=== PATIENT | male | born 1985 | race Caucasian/White ===

== ENCOUNTER 2020-05-11 07:32 | Emergency (ER) | payer OTHER ==
[2020-05-11 07:46] VITALS: BMI 24.1
--- NOTE | 2020-05-11 08:16 | PDOC ---
History of Present Illness - General Chief Complaint: Rectal Bleed Stated Complaint: PAIN Time Seen by Provider: 05/11/20 08:15 History Source: Patient - History of Present Illness Initial Comments: 05/11/20 08:15 34F w/hx HIV, epilepsy, asthma, depression p/w 4 days of BRBPR, bilateral leg pain and weakness. He reports that 4 days ago he needed assistance getting out of bed due to both pain and weakness in the bilateral legs. He reports that since then he had leakage of stool, denies urinary incontinence. He reports being unable to ambulate secondary to both pain and weakness in the bilateral lower extremities. He denies any fevers, chills, confusion, nausea, or vomiting. He reports abdominal bloating. Past History - Medical History Allergies/Adverse Reactions: Allergies Allergy/AdvReac Type Severity Reaction Status Date / Time Shellfish Allergy Intermediate Verified 05/11/20 07:43 latex Allergy Mild Hives Verified 05/11/20 07:43 shellfish derived Allergy Mild Verified 05/11/20 07:43 diphenhydramine HCl Allergy Verified 05/11/20 07:43 [From Benadryl] haloperidol [From Haldol] Allergy Verified 05/11/20 07:43 haloperidol lactate Allergy Verified 05/11/20 07:43 [From Haldol] iodine Allergy Verified 05/11/20 07:43 lorazepam [From Ativan] Allergy Verified 05/11/20 07:43 Penicillins Allergy Verified 05/11/20 07:43 sea food Allergy Uncoded 05/11/20 07:43 Home Medications: Ambulatory Orders Unobtainable 05/11/20 Anemia: No Asthma: Yes Cancer: No Cardiac Disorders: No CVA: No COPD: No CHF: No Dementia: No Diabetes: No GI Disorders: No Disorders: No HTN: No Hypercholesterolemia: No Liver Disease: No Psychiatric Problems: Yes (depression) Seizures: Yes (LAST ONE 3 YEARS AGO/NO MEDS) Thyroid Disease: Yes - Surgical History Abdominal Surgery: No Appendectomy: Yes (removed when young) Cardiac Surgery: No Cholecystectomy: No Lung Surgery: No Neurologic Surgery: No Orthopedic Surgery: No - Immunization History Td Vaccination: No TDAP Vaccination: Yes Immunization Up to Date: No (no flu vaccine) - Psycho-Social/Smoking History Smoking Status: Yes Smoking History: Current every day smoker Years of Tobacco Use: 0 Have you smoked in the past 12 months: No Number of Cigarettes Smoked Daily: 5 Cigars Per Day: 0 Information on smoking cessation initiated: No 'Breaking Loose' booklet given: 01/23/15 - Substance Abuse Hx (Audit-C & DAST Scrn) How often the patient has a drink containing alcohol: Never Score: In Men: 4 or > Positive; In Women: 3 or > Positive: 0 Screen Result (Pos requires Nsg. Audit-10AR): Negative In the last yr the pt used illegal drug/Rx for NonMed reason: No Score: Yes response is considered Positive: 0 Screen Result (Positive result requires Nsg. DAST-10): Negative Review of Systems - Review of Systems Able to Perform ROS?: Yes Comments:: 05/11/20 10:05 GENERAL/CONSTITUTIONAL: Weakness. No fever or chills. HEAD, EYES, EARS, NOSE AND THROAT: No change in vision. No ear pain or discharge. No sore throat. CARDIOVASCULAR: No chest pain or shortness of breath RESPIRATORY: No cough, wheezing, or hemoptysis. GASTROINTESTINAL: Stool leakage. No nausea, vomiting, diarrhea or constipation. GENITOURINARY: No dysuria, frequency, or change in urination. MUSCULOSKELETAL: Lower extremity pain and weakness. No joint or muscle swelling. No neck or back pain. SKIN: No rash NEUROLOGIC: Normal rectal tone. No headache, vertigo, loss of consciousness, or change in sensation. ENDOCRINE: No increased thirst. No abnormal weight change HEMATOLOGIC/LYMPHATIC: No anemia, easy bleeding, or history of blood clots. ALLERGIC/IMMUNOLOGIC: No hives or skin allergy. *Physical Exam - Vital Signs Last Vital Signs Temp Pulse Resp BP Pulse Ox 98.4 F 73 20 100/56 L 100 05/11/20 07:44 05/11/20 07:44 05/11/20 07:44 05/11/20 07:44 05/11/20 07:44 - Physical Exam 05/11/20 10:06 GENERAL: Unkempt, foul smelling, surrounded by flies. Awake, alert, and fully oriented, in no acute distress HEAD: No signs of trauma, normocephalic, atraumatic EYES: PERRLA, EOMI, sclera anicteric, conjunctiva clear ENT: Auricles normal inspection, hearing grossly normal, nares patent, oropharynx clear without exudates. Moist mucosa NECK: Normal ROM, supple, no lymphadenopathy, JVD, or masses LUNGS: No distress, speaks full sentences, clear to auscultation bilaterally HEART: Regular rate and rhythm, normal S1 and S2, no murmurs, rubs or gallops, peripheral pulses normal and equal bilaterally. ABDOMEN: RUQ, LLQ tenderness. Soft, normoactive bowel sounds. No guarding, no rebound. No masses EXTREMITIES : Normal rectal tone. Brown stool. Skin graft margins to R inner thigh. 5/5 strength bilaterally. Normal sensation to soft touch. Normal inspection, Normal range of motion, no edema. No clubbing or cyanosis NEUROLOGICAL: Cranial nerves II through XII grossly intact. Normal speech, no focal sensorimotor deficits SKIN: Warm, Dry, normal turgor, no rashes or lesions noted Rectal: Underwear, groin covered in brown stool. Normal rectal tone, no bright red blood or melena. Medical Decision Making - Medical Decision Making 05/11/20 09:55 34M w/hx depression, HIV, asthma, epilepsy p/w 4 days of atraumatic bilateral LE weakness, pain, stool leakage as well as RUQ, LLQ abdominal pain. Normal rectal tone on exam, no gross blood per rectum. Ddx electrolyte derangement, di verticulosis, weakness secondary to anemia. Cauda equina unlikely with normal sensation, normal rectal tone. Plan: CBC CMP Lipase FOBT Ofirmev Maalox Pepcid 1L LR CXR Dispo: Pending labs Discharge - Discharge Information Problems reviewed: Yes Clinical Impression/Diagnosis: Leg pain, bilateral Condition: Stable Disposition: HOME - Admission No - Follow up/Referral - Patient Discharge Instructions Patient Printed Discharge Instructions: DI for Leg Pain Additional Instructions: You were seen in the ER for leg pain. Your MRI did not show any signs of compression of the spinal cord, or any fractures or injuries. Your physical exam was normal. Follow up with your primary care physician as soon as possible, in the next 2-3 days. Return to the ER if you develop high fevers, confusion, intractable nausea and vomiting. - Post Discharge Activity
[2020-05-11] MEDS ORDERED: FAMOTIDINE 20 MG/50 ML IVPB 20 MG/50 ML MG IVPB ONE ×2 (08:25→08:57)
[2020-05-11] MEDS ORDERED: MAG HYDROX/AL HYDROX/SIMETH 30 ML UNIT-DOSE CUP PO ONE (08:25)
[2020-05-11] MEDS ORDERED: ACETAMINOPHEN 1000 MG/100 ML VIAL (NON FORMULARY) IVPB ONE (08:25)
[2020-05-11] MEDS ORDERED: LACTATED RINGERS SOLUTION 1000 ML INFUS.BAG IV ONE (08:26)
[2020-05-11] MEDS ORDERED: MAG HYDROX/AL HYDROX/SIMETH 30 ML UNIT-DOSE CUP ONE (08:57)
[2020-05-11] MEDS ORDERED: ACETAMINOPHEN INJECTION 100 ML IVPB ONE (08:57)
[2020-05-11] MEDS ORDERED: ACETAMINOPHEN 325 MG TABLET (FP) PO ONE (10:22)
[2020-05-11] MEDS ORDERED: ACETAMINOPHEN 325 MG TABLET (FP) ONE (10:36)
--- NOTE | 2020-05-11 12:02 | PDOC ---
Attending Attestation - Resident Resident Name: Darin Marrero - ED Attending Attestation I have performed the following: I have examined & evaluated the patient, The case was reviewed & discussed with the resident, I agree w/resident's findings & plan, Exceptions are as noted - HPI HPI: 05/11/20 12:00 34 M with h/o HIV, epilepsy, asthma, depression, presenting with bloody stool x 4 days, accompanied by BLE pain and weakness. Pt states that he has had red blood in his stool. Denies any dark tarry stools. He also reports worsening pain in both legs. Denies any falls or trauma. No swelling. - Physicial Exam PE: 05/11/20 12:01 See resident exam - Medical Decision Making 05/11/20 12:01 34 M with BLE weakness and pain, as well as possible fecal incontinence. Pt has normal neuro exam with good rectal tone but was covered in his own feces upon arrival to ED. Will evaluate spinal cord with MRI. - Pt refusing all labwork and IV - MRI spine Pt signed out to Dr. Phillips at 4:30pm, pending MRI and re-evaluation Discharge - Discharge Information Problems reviewed: Yes Clinical Impression/Diagnosis: Leg pain, bilateral, Malingering, Weakness Condition: Stable Disposition: HOME - Follow up/Referral - Patient Discharge Instructions Patient Printed Discharge Instructions: DI for Leg Pain Additional Instructions: You were seen in the ER for leg pain. Your MRI did not show any signs of compression of the spinal cord, or any fractures or injuries. Your physical exam was normal. Follow up with your primary care physician as soon as possible, in the next 2-3 days. Return to the ER if you develop high fevers, confusion, intractable nausea and vomiting. - Post Discharge Activity
[2020-05-11 18:00] VITALS: TEMP 98.1
[2020-05-11 18:54] VITALS: BP 101/61; PULSE 65
== END 2020-05-11 18:40 | disposition home or self-care (01) ==
LOC: JER 07:32
DX: M79.604 Pain in right leg (principal); M79.605 Pain in left leg
CPT/HCPCS: 36415; 71045-TC-FY; 72146-TC; 72148-TC; 82272; 99285-25

== ENCOUNTER 2020-05-19 08:59 | Emergency (ER) | payer OTHER ==
[2020-05-19 09:22] VITALS: TEMP 99.9; BMI 24.4
--- OUTSIDE RECORDS SUMMARY | 2020-05-19 09:41 | XMS ---
:1985 Author Organization [facility] Care Team Providers Name Role Phone ED STAFF PHYSICIANNORA Unavailable Unavailable Victoriano Millan Unavailable [phone] DALTON ZAMBRANO Unavailable Unavailable ED STAFF PHYSICIAN, STAFF Unavailable Unavailable Conti, Saloman Unavailable [phone] Conti, Saloman Unavailable [phone] EMERGENCY SERVICE, X Unavailable Unavailable ED STAFF PHYSICIANSILVINO Unavailable Unavailable INDY HECTOR Unavailable Unavailable ZUNASSIGNED Unavailable Unavailable Ringstad, Giselle Unavailable Unavailable Ringstad, Giselle Unavailable Unavailable Ringstad, Giselle Unavailable Unavailable Ringstad, Giselle Unavailable Unavailable Ringstad, Giselle Unavailable Unavailable Ringstad, Giselle Unavailable Unavailable Ringstad, Giselle Unavailable Unavailable Ringstad, Giselle Unavailable Unavailable Ringstad, Giselle Unavailable Unavailable Ringstad, Giselle Unavailable Unavailable Ringstad, Giselle Unavailable Unavailable Conchita, Beatriz Unavailable Unavailable Conchita, Beatriz Unavailable Unavailable Conchita, Beatriz Unavailable Unavailable Conchita, Beatriz Unavailable Unavailable Re-disclosure Warning The records that you are about to access may contain information from federally- assisted alcohol or drug abuse programs. If such information is present, then the following federally mandated warning applies: This information has been disclosed to you from records protected by federal confidentiality rules (42 CFR part 2). The federal rules prohibit you from making any further disclosure of this information unless further disclosure is expressly permitted by the written consent of the person to whom it pertains or as otherwise permitted by 42 CFR part 2. A general authorization for the release of medical or other information is NOT sufficient for this purpose. The Federal rules restrict any use of the information to criminally investigate or prosecute any alcohol or drug abuse patient.The records that you are about to access may contain highly sensitive health information, the redisclosure of which is protected by Article 27-F of the [facility] law. If you continue you may haveaccess to information: Regarding HIV / AIDS; Provided by facilities licensed or operated by the [facility] Office of Mental Health; or Provided by the [facility] Office for People With Developmental Disabilities. If such information is present, then the following [facility] mandated warning applies: This information has been disclosed to you from confidential records which are protected by state law. State law prohibits you from making any further disclosure of this information without the specific written consent of the person to whom it pertains, or as otherwise permitted by law. Any unauthorized further disclosure in violation of state law may result in a fine or senior living sentence or both. A general authorization for the release of medical or other information is NOT sufficient authorization for further disclosure. Allergies and Adverse Reactions Type Description Substance Reaction Status Data Source(s) Drug allergy iodine Iodine Active [facility] Drug allergy latex Latex Active [facility]) propensity to Substance with Penicillins Active NEXTGE N adverse penicillin ([facility] to [facility] drug antibacterial Medical mechanism of Center) action (substance) Propensity to LORAZEPAM Lorazepam Anaphylaxis High Active [facility] adverse (qualifier Simran reactions to value) [facility] High Propensity to DIPHENHYDRAMINE Diphenhydramine Anaphylaxis Active Bon adverse HCL Hcl High (qualifier [facility] reactions to value) [facility] High Propensity to COCONUT Coconut Anaphylaxis High Active [facility] adverse reactions extract (qualifier Simran to drug value) [facility] High Propensity to HALOPERIDOL Haloperidol Anaphylaxis Active [facility] adverse LACTATE Lactate High (qualifier Simran reactions to value) [facility] High Propensity to IODINE Iodine Anaphylaxis High Active (qualifie r [facility] adverse reactions value) Simran Health to drug System Inc High Propensity to PENICILLINS Penicillins Anaphylaxis High Active [facility] adverse (qualifier Simran reactions to value) [facility] High Propensity to SHELLFISH Shellfish Anaphylaxis High Active [facility] adverse DERIVED Derived (qualifier Simran reactions to value) Health [facility] High Drug allergy latex latex Unknown [facility] Environmental latex latex Unknown [facility] on Drug allergy lorazepam lorazepam Swelling/Edema [facility] Corpor[facility] on Drug allergy No Known Drug No Known Drug [facility] yelena Allergies [facility] Corpor[facility] on Food allergy Shellfish Shellfish Unknown [facility] Drug allergy Ativan Ativan [facility] Food allergy ATIVAN ATIVAN Swelling/Edema [facility] Drug allergy Iodine Iodine [facility] Food allergy shellfish/ shellfish/ [facility] seafood seafood [facility] Food allergy Seafood Seafood Anaphylaxis [facility] Corpor[facility] on Food allergy anaphylaxis anaphylaxis [facility] on Food allergy Seafood Seafood [facility] Encounters Encounter Providers Location Date Indications Data Source(s ) Emergency Attender: [facility] ED H 05/19/2020 [facility] STAFF 06:31:00 AM Medical Fior cracamo PHYSICIANAttender: EDT - STAFF ED STAFF 05/19/2020 PHYSICIANAdmitter: 09:10:00 AM [facility] ED STAFF EDT PHYSICIANReferrer: ZUNASSIGNED Patient discharged. Outpatient Attender: DALTON Avalos 05/15/2020 [facility] Caitlyn EDMOND 10:05:00 AM EDT Medical JENNAAdmitter: DALTON HOFFMAN Psychiatric Attender: Victoriano [facility] 05/15/2020 [facility] 10:05:00 AM EDT - ([facility] (45+ 05/15/2020 [facility] Min) 10:05:00 AM EDT Medical Center) Emergency Attender: [facility] ED H 05/12/2020 [facility] STAFF 12:59:00 PM EDT - Medical PHYSICIANAttender: 05/12/2020 Center STAFF ED STAFF 06:35:00 PM EDT PHYSICIANAdmitter: SILVINO ED STAFF PHYSICIANReferrer: ZUNASSIGNED Patient discharged. Emergency Attender: NORA ED STAFF H 05/09/2020 08:01:00 AM [facility] PHYSICIANAttender: STAFF ED EDT - 05/09/2020 [facility] STAFF PHYSICIANAdmitter: 12:49:00 PM EDT [place] ED STAFF PHYSICIANReferrer: ZUNASSIGNED Patient discharged. Emergency Attender: SILVINO ED STAFF H 05/02/2020 06:24:00 PM [facility] PHYSICIANAttender: STAFF ED EDT - 05/02/2020 [facility] STAFF PHYSICIANAdmitter: SILVINO 09:57:00 PM EDT ED STAFF PHYSICIANReferrer: ZUNASSIGNED Patient discharged. Emergency Attender: EMERGENCY 09/29/2019 10:51:00 PAIN [facility] SERVICE, XAttender: PM EST Healt h INDY MasAdmitter: C INDY Soto PAIN Emergency 08/02/2018 01:43:45 PM EST - vomitin g [facility] 08/02/2018 04:54:00 PM EST vomiting OutpatientOFFICE/OUTPATIENT Attender: [facility] 10/21/2013 [facility] 02:39:00 PM EST ([facility] - 10/21/2013 [facility] 02:39:00 PM EST Medical [place]) Attender: [facility] 02/28/2013 [facility] 11:36:00 AM EDT ([facility] - 02/28/2013 [facility] 11:36:00 AM EDT Medical Center) Attender: [facility] 01/12/2012 [facility] Beatriz Conchita [facility] 05:15:00 PM EDT ([facility] - 01/12/2012 [facility] 05:15:00 PM EDT Medical Center) Attender: [facility] 12/17/2011 [facility] Giselle [facility] 06:43:00 PM EDT ([facility] - 12/17/2011 [facility] 06:43:00 PM EDT Medical Center) Attender: [facility] 11/09/2011 [facility] Madelin Conti [facility] 03:36:00 PM EDT ([facility] - 11/09/2011 [facility] 03:36:00 PM EDT Medical Center) Attender: [facility] 03/04/2011 [facility] 04:01:00 PM EDT ([facility] - 03/04/2011 [facility] 04:01:00 PM EDT Medical Center) Attender: [facility] 09/26/2010 [facility] Victoriano [facility] 01:34:00 PM EST ([facility] - 09/26/2010 [facility] 01:34:00 PM EST Medical Center) Attender: [facility] 06/14/2009 [facility] 02:54:00 PM EDT ([facility] - 06/14/2009 [facility] 02:54:00 PM EDT Medical Center) Att[facility]: [facility] 02:54:00 PM EDT ([facility] - 03/08/2009 [facility] 02:54:00 PM EDT Medical Center) Medications Medication Brand Start Product Dose Route Administrative [facility] Indications Reaction Description Data Name Date Form Instructions Instructions Source(s) Ibupro UNK complet Ibuprofen W estcheste 800mg-20 2012 MG ed (Motrin) r Count y 11:06: 800mg; Health 12 PM Twenty (20); Care EST Take one by Corporat io mouth every n 8 hours as needed for pain TOPAMAX UNK complet TOPAMAX Jose Carlos tcheste Oral 2012 MG ed Oral 25 r County 02:02: mg(s) Health 56 PM 1tab(s) - Care EST Instructions Corpora franky : PO, n at every bedtime - Duration: 7 day(s) 1 PO and BID7 day(s) 2 PO BID 14 day(s) - Dispense: quantity sufficient Sudafed UNK complet Sudafed We stcheste 30mg-20 2012 MG ed 30mg; Twenty r Co unty 06:45: (20); Take Health 38 AM one every Care EST six hours as Corpora franky needed for n congestion Percocet UNK complet Percocet [place] 5/325mg-12 2012 MG ed 5mg r County 06:32: (Oxycodone Health 37 AM 5mg/Acetamin Care EST ophen Corporatio 325mg); n Twelve (12); Take one every four to six hours as needed for pain; max 6 tabs/day; CAUTION: Causes sedation Kely Forbes MD Reglan UNK complet Reglan [place] 10mg-20 Q6 2012 MG ed 10mg; [facility] 06:32: (20); One by Healt h 37 AM mouth every Care EST six hours as Corpora franky needed for n nausea Kely Forbes MD Zofran UNK complet Zofran [place] 4mg-10 2012 MG ed 4mg; [facility] 11:43: (10); Take Health 16 AM one by mouth Care EST every eight Corporat io hours as n needed for nausea Zofran UNK complet Zofran [place] 4mg-10 2012 MG ed 4mg; [facility] 10:19: (10); Take Health 55 AM one by mouth Care EDT every eight Corporat io hours as n needed for nausea Debrox 6.5 CARBAM 02/28/ active use as N EXTGEN % Ear Drops ALESHA 2013 directed (Jonah nt PEROXI 12:00: Sw[place]na STARK 00 AM Medical EDT Center) Motrin 600 IBUPRO 11/08/ active take 1 N EXTGEN mg Tab FEN 2012 tablet (Saint 12:00: (600MG) by Giovanny whittington 00 AM oral route 3 Medica l EDT times every Center) day with food quetiapine Seroqu ORAL active quetiapi ne NEXTGEN 100 MG Oral el 100 2011 {tabl 100 MG Ora l (Saint Tablet mg Tab 12:00: et} Tablet [facility] [Seroquel] 00 AM [Seroquel] Sc dical Seroquel EDT Center) 100 mg Tab Hydrocortis hydroc 03/04/ active apply b y NEXTGEN one 10 ortiso 2010 topical (Saint MG/ML ne 1 % 12:00: route every Caitlyn sephs Topical Topica 00 AM day to the Med ical Cream l EDT affected Center) hydrocortis Cream area(s) one 1 % Topical Cream Albuterol ALBUTE 03/08/ active NEXT GEN Sulfate HFA ROL 2008 ([facility] 90 SULFAT 12:00: [place] mcg/Actuati E 00 AM Medical on Aerosol EDT Center) Inhaler Antiviral Antivi 999 oral complet Antiviral [place] ral MG ed r [facility] n Clindamycin Clinda 999 oral complet Clindamy claudio [place] mycin MG ed r [facility] n Naproxen naprox 1 complet [facility] 500 MG Oral en 500 ed Giovanny s Tablet mg Medical naproxen Tablet Center 500 mg , Tablet, Ordere Ordered By: d By: Doug Manuel MDDirection ch, s: 1 tablet MDDire oral twice ctions a day PRN : 1 pain tablet oral twice a day PRN pain Insurance Providers Payer name Policy type Policy ID Covered Covered democrat's Policy P trina / Coverage democrat ID relationship to [place] [employer] ormation type [place] M [id number] 01 [id number] W [id number] W [id number] 01 [id number] MEDICARE [id number] SP [id number] MEDICAID [id number] SP [id number] AFFINITY [id number] SP [id number] 100 SELF PAY/NO 0 Self 0 SLIDE SLIDING FEE [id number] Self [id number] 1 [place]ICAID [place] [id number] Self [id number] UNK [place] [id number] PART A AND B [place] [id number] [place] [employer]. [place] [id number] PART A AND B [place] [id number] [place] [employer] AFFINITY [id number] 1 HEALTH PLAN MEDICAID [facility] Managed Care [id number] MEDICAID Medicaid Problems, Conditions, and Diagnoses Code Display Name Description Problem Type Effective Data Sour ce(s) Dates F32.9 Major depressive MAJOR DEPRESSIVE Diagnosis 05/15/2020 int [facility] disorder, single DISORDER, SINGLE 10:05:00 AM M edical Center episode, unspecified EPISODE, EDT UNSPECIFIED G40.909 Epilepsy, EPILEPSY, UNSP, NOT Diagnosis 05/12/2020 [facility] [place] unspecified, not INTRACTABLE, 12:59:00 PM Medic al Center intractable, without WITHOUT STATUS EDT status epilepticus EPILEPTICUS I10 Essential (primary) ESSENTIAL (PRIMARY) Diagnosis 020 [facility] hypertension HYPERTENSION 12:59:00 PM Medical C enter EDT 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 05/12/2020 Surinder Barcenas disc degeneration, INTERVERTEBRAL DISC 12:59: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 Medical Center lumbar region DEGENERATION, EDT LUMBAR REGION M54.5 Low back pain LOW BACK PAIN Diagnosis 05/12/2020 [facility] 12:59:00 PM Medical Cente r EDT F25.1 Schizoaffective SCHIZOAFFECTIVE Diagnosis 05/02/2020 Surinder Barcenas disorder, depressive DISORDER, 06:24:00 PM Med ical Center type DEPRESSIVE TYPE EDT Z00.00 Encounter for ENCNTR FOR GENERAL Diagnosis 05/02/2020 Jonah Barcenas general adult ADULT MEDICAL EXAM 06:24:00 PM [facility] medical examination W/O ABNORMAL EDT without abnormal FINDINGS findings B20 Human HUMAN Diagnosis 09/29/2019 [place] immunodeficiency IMMUNODEFICIENCY 10:51:00 PM [employer] virus [HIV] disease VIRUS (HIV) DISEASE EST [facility] Z88.8 Allergy status to ALLERGY STATUS TO Diagnosis 09/29/2019 [place] other drugs, OTH DRUG/MEDS/BIOL 10:51:00 PM [facility] [employer] medicaments and SUBST STATUS EST [facility] [employer]Cell substances status Z91.040 Latex allergy status LATEX ALLERGY Diagnosis 09/29/2019 [facility] STATUS 10:51:00 PM [facility] iiyuma Z91.041 Radiographic dye RADIOGRAPHIC DYE Diagnosis 09/29/[address] [facility] allergy status ALLERGY STATUS 10:51:00 PM [facility] Z91.013 Allergy to seafood ALLERGY TO SEAFOOD Diagnosis 0 [place] 10:51:00 PM [facility] iiyuma Z88.0 Allergy status to ALLERGY STATUS TO Diagnosis 09/29/2019 [place] penicillin PENICILLIN 10:51:00 PM [facility] G40.909 Epilepsy, EPILEPSY, UNSP, NOT Diagnosis 09/29/2019 [facility] oneil unspecified, not INTRACTABLE, 10:51:00 PM [facility] intractable, without WITHOUT STATUS EST [facility] status epilepticus EPILEPTICUS Corpo ration 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 [address] [place] [address] other organs OTHER ORGANS 10:51:00 PM [facility] [employer] [facility] Z90.49 Acquired absence of ACQUIRED ABSENCE OF Diagnosis [address] [place], [place] [address]ter other specified OTHER SPECIFIED 10:51:00 PM [facility] parts of digestive PARTS OF DIGESTIVE EST Care tract TRACT [employer] Y99.8 Other external cause OTHER EXTERNAL Diagnosis 09/29/2019 [place] status CAUSE STATUS 10:51:00 PM [facility] EST Care [employer] Y92.89 Other specified OTH PLACES THE Diagnosis 09/29/2019 [facility] the [facility] PLACE OF OCCURRENCE 10:51:0 0 PM [facility] of occurrence of the OF THE EXTERNAL EST Care external cause CAUSE Corporatio n X58.XXXA Exposure to other EXPOSURE TO OTHER Diagnosis 09/29/2019 [place] specified factors, SPECIFIED FACTORS, 10:51:00 PM [facility] initial encounter INITIAL ENCOUNTER EST Care [employer] S61.214A Laceration without LACERATION W/O FB Diagnosis 09/29/2019 [place] foreign body of OF R RNG FNGR W/O 10:51:00 PM [facility] right ring finger DAMAGE TO NAIL, EST Ca re without damage to INIT Corpora tion nail, initial encounter M79.641 Pain in right hand PAIN IN RIGHT HAND Diagnosis 0 [place] 10:51:00 PM [facility] EST Care [employer]Wh[employer] K52.9 Noninfective Noninfective Diagnosis 08/02/2018 [facility] - gastroenteritis and gastroenteritis and 01:43:4 5 PM Community colitis, unspecified colitis, EST Hosp ital unspecified Diagnosis [facility] Diagnosis [facility] Diagnosis [facility] Diagnosis [facility]) Surgeries/Procedures Procedure Description Date Indications Data Source(s) Psychiatric Diagnostic 05/15/2020 ERUM EN ([facility] Interview (45+ Min) 12:00:00 AM EDT [facility] - 05/15/2020 Center) 12:00:[address] ABD PELV WO CT ABD PELV WO STAT 08/02/2018 018 [facility] CONT CONT 3:42 PM EST 08:42:42 PM [facility] [employer] System I nc URINALYSIS W/ RFLX URINALYSIS W/ STAT 08/02/201807/16 [facility] MICROSCOPIC RFLX MICROSCOPIC 2:02 PM EST 07:02:0 0 PM [facility] System I nc LIPASE LIPASE STAT 08/02/2018 08/02/2018 [facility] 2:01 PM EST 07:01:00 PM [facility] I nc METABOLIC PANEL, METABOLIC PANEL, STAT 08/02/2018 [facility] COMPREHENSIVE COMPREHENSIVE 2:01 PM EST 07:01:00 PM [facility] I nc CBC WITH AUTOMATED CBC WITH STAT 08/02/2018 8 [facility] DIFF AUTOMATED DIFF 2:01 PM EST 07:01:00 PM [facility] I nc OFFICE/OUTPATIENT VISIT, EST 10/21/2013 12:00:00 AM ES T - NEXTGEN ([facility] 10/21/2013 12:00:00 AM EST [facility]) Results ID Date Data Source [id number] 05/09/2020 09:20:00 AM EDT [facility] -0400 Name Value Range Interpretation Description Data Sup porting Code Source(s) Document(s ) Cannabinoids <content [facility] [Presence] in styleCode="[facility] Urine by Screen d">Cannabinoid Medical method >50 ng/mL [facility] </content>NEGA TIVE NG/ML (Reference Range: not available)<br/ > ID Date Data Source [id number] 12/19/2019 09:35:00 PM EDT [facility] Name Value Range Interpretation Code Description Data [place] rce(s) Supporting Document(s ) SARS-CoV-2 [facility] RNA Resp Ql KEVIN+probe This lab was ordered by Raymundo and marielos rted by [facility]. ID Date Data Source [id number] 10/22/2019 03:00:00 AM EDT [facility] Name Value Range Interpretation Code Description Data [place] rce(s) Supporting Document(s ) 2019-nCoV [facility] RNA XXX KEVIN+probe- Imp This lab was ordered by [facility] and reported by [facility] Health Lab. ID Date Data Source [id number] 10/22/2019 03:00:00 AM EDT [facility] Name Value Range Interpretation Code Description Data [place] rce(s) Supporting Document(s ) 2019-nCoV [facility] RNA XXX KEVIN+probe- Imp This lab was ordered by [facility] and reported by [facility] Public Health Lab. Procedure Social History Code Duration Value Status Description Data Source(s ) Smoking 05/19/2020 Daily Smoker completed Daily Smoker [facility] 07:56:00 AM Medical Cente r EDT Smoking 05/19/2020 Daily Smoker completed Daily Smoker [facility] 07:17:00 AM Medical Cente r EDT Smoking 05/19/2020 Daily Smoker completed Daily Smoker [facility] 06:53:00 AM Medical Cente r EDT Smoking 05/19/2020 Daily Smoker completed Daily Smoker [facility] 06:38:00 AM Medical Cente r EDT Caffeine Use 05/15/2020 completed NEXTGEN (Jonah nt Details 12:00:00 AM [facility]) 05/15/2020 Occasional completed Occasional NEXTGEN ([facility] 12:00:00 AM cigarette cigarette smoker [facility] smoker [facility]) Smoking 05/15/2020 Unknown if ever completed Unknown if ever NEXT GEN ([facility] 12:00:00 AM smoked smoked [facility]) Smoking 05/12/2020 Daily Smoker completed Daily Smoker [facility] 02:57:00 PM Medical Cente r EDT Smoking 05/12/2020 Daily Smoker completed Daily Smoker [facility] 01:10:00 PM Medical Cente r EDT Smoking 05/12/2020 Daily Smoker completed Daily Smoker [facility] 01:00:00 PM Medical Cente r EDT Smoking 05/09/2020 Daily Smoker completed Daily Smoker [facility] 08:09:00 AM Medical Cente r EDT Smoking 08/02/2018 Current every completed Current every [facility] 12:00:00 AM day smoker day [facility] Cigarettes 08/02/2018 UNK completed [facility] smoked current 12:00:00 AM Simran H ealth (pack per day) - EST System I nc Reported Alcohol Use completed NEXTGEN ([facility]) Smoking Unknown if ever completed Unknown if ever [facility] smoked smoked Medical Center Vital Signs ID Date Data Source UNK Name Value Range Interpretation Code Description Data Source(s) Body temperature 36.177964 36.513287 N[facility] Respiratory rate 16 /min 16 /min [facility] Oxygen saturation 97 % 97 % [facility] carmen in Arterial blood Medical Center by Pulse oximetry Heart rate 94 /min 94 /min [facility] Diastolic blood 86 mm[Hg] 86 mm[Hg] [facility] pressure Medical Center Systolic blood 147 mm[Hg] 147 mm[Hg] [facility] Medical Center Body temperature 36.819069 36.675673 [facility] Respiratory rate 18 /min 18 /min [facility] Oxygen saturation 98 % 98 % [facility] Arterial blood Medical Center by Pulse oximetry Heart rate 84 /min 84 /min [facility] Diastolic blood 65 mm[Hg] 65 mm[Hg] [facility] pressure Medical Center Systolic blood 118 mm[Hg] 118 mm[Hg] [facility] Body temperature 36.200362 36.488289 [facility] Respiratory rate 18 /min 18 /min [facility] Oxygen saturation 99 % 99 % [facility] in [facility] blood [facility] Center by Pulse oximetry Heart rate 74 /min 74 /min [facility] Diastolic blood 76 mm[Hg] 76 mm[Hg] [facility] pressure Medical Center Systolic blood 130 mm[Hg] 130 mm[Hg] [facility] Body weight 72.829328 kg 72.879741 kg [facility] Measured Medical Center Body temperature 36.905180 36.086515 [facility] Respiratory rate 18 /min 18 /min [facility] Oxygen saturation 100 % 100 % [facility] by Pulse oximetry Heart rate 74 /min 74 /min [facility] Body height 182.192384 182.582089 cm [facility] Center Diastolic blood 74 mm[Hg] 74 mm[Hg] [facility] pressure [facility] Center Systolic blood 128 mm[Hg] 128 mm[Hg] [facility] Body mass index 21.6 kg/m2 21.6 kg/m2 [facility] (BMI) [Ratio] Medical [facility] ter Body weight 92.516788 kg 92.275007 kg [facility] Measured [facility] Body temperature 36.238284 36.431621 [facility] Respiratory rate 18 /min 18 /min [facility] Oxygen saturation 98 % 98 % [facility] Ar[facility] by Pulse oximetry Heart rate 86 /min 86 /min [facility] Body height 188.934253 188.692612 cm [facility] Diastolic blood 82 mm[Hg] 82 mm[Hg] [facility] pressure [facility] Center Systolic blood 135 mm[Hg] 135 mm[Hg] [facility] Body mass index 26.0 kg/m2 26.0 kg/m2 [facility] (BMI) [Ratio] Medical [address] Systolic blood 105 mm[Hg] 105 mm[Hg] [place] [facility] Diastolic blood 60 mm[Hg] 60 mm[Hg] [facility] Heart rate 62 /min 62 /min [email or web address] Body temperature 36.78 Nela 36.78 Nela [facility] Respiratory rate 16 /min 16 /min [facility] [employer] [facility] Oxygen saturation 100 % 100 % [facility] Arterial blood [facility] by Pulse oxim[facility] Body height 182.9 cm 182.9 cm [email or web address] Body weight 90.719 kg 90.719 kg [facility] [email or web address] Body mass index 27.12 kg/m2 27.12 kg/m2 [facility] (BMI) [Ratio] [facility] Patient Treatment Plan of Care Planned Activity Planned Date Details Description Data Source (s) Debrox 6.5 % Ear Drops 02/28/2013 12:00:00 NEXTGEN ([facility]) Motrin 600 mg Tab 11/09/2011 12:00:00 NEX TGEN ([facility]) quetiapine 100 MG Oral 11/09/2011 12:00:00 NEXTGEN ([facility] Tablet [Seroquel] [facility] dical [place]) Hydrocortisone 10 MG/ML 03/04/2011 12:00:00 NEXTGEN ([facility] Topical Cream [facility]) Albuterol Sulfate HFA 90 03/08/2009 12:00:00 NEXTGEN ([facility] mcg/Actuation Aerosol [facility] In[facility]) Naproxen 500 MG Oral [facility]
--- NOTE | 2020-05-19 10:27 | PDOC ---
History of Present Illness - General Chief Complaint: Seizure Stated Complaint: SEIZURE Time Seen by Provider: 05/19/20 09:20 History Source: Patient Exam Limitations: No Limitations - History of Present Illness Initial Comments: 05/19/20 10:27 Conner Beverly is a 34F with PMH HIV, asthma, epilepsy (on Keppra and Dilantin), depression c/b self-harm and burn to right hand, known to ED for several visits for psychiatric and seizure-related issues, BIBA to ED for evaluation for seizure. Has not had PMD or neurology care in months, has been unable to take prescribed Keppra 500mg BID or Dilantin 100mg TID for the last month, or his HIV medications. Today had aura for seizure, JACKSON and photophobia, says he presented to [facility] ER for care, but was discharged home. Walked to [facility], left, and says he must have passed out, woke up ~[address] after so iling his clothes with feces and urine, called [facility] for evaluation and to be brought to [facility] ED. Denies recent illness, chest pain, SOB, fever, diarrhea, urinary sx. Denies post-ictal state normally, gets partial seizures, last seizure March 2019. Currently denies JACKSON, vision changes, weakness, lower back pain. Last visit to ED patient was highly uncooperative, covered in excrement without explanation, and received MRI for evaluation of cord compression as patient reported unable to walk, negative exam, able to walk out of ED. 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 Past History - Medical History Allergies/Adverse Reactions: Allergies Allergy/AdvReac Type Severity Reaction Status Date / Time Shellfish Allergy Intermediate Verified 05/19/20 09:34 latex Allergy Mild Hives Verified 05/19/20 09:34 shellfish derived Allergy Mild Verified 05/19/20 09:34 diphenhydramine HCl Allergy Verified 05/19/20 09:34 [From Benadryl] haloperidol [From Haldol] Allergy Verified 05/19/20 09:34 haloperidol lactate Allergy Verified 05/19/20 09:34 [From Haldol] iodine Allergy Verified 05/19/20 09:34 lorazepam [From Ativan] Allergy Verified 05/19/20 09:34 Penicillins Allergy Verified 10/04/20 09:34 sea food Allergy Uncoded 05/11/20 07:43 Home Medications: Ambulatory Orders Albuterol Sulfate 2 puff PO PRN 05/19/20 Dilantin - 100 mg PO TID 05/19/20 Fluticasone Propionate [Flovent Hfa] 44 mcg DAILY 05/19/20 Keppra 500 mg PO BID 05/19/20 Phenytoin Na Extended [Dilantin -] 100 mg PO TID #90 capsule 05/19/20 Triumeq 600-50-300 mg Tablet 05/19/20 levETIRAcetam [Keppra -] 500 mg PO BID #60 tablet 05/19/20 Anemia: No Asthma: Yes Cancer: No Cardiac Disorders: No CVA: No COPD: No CHF: No Dementia: No Diabetes: No GI Disorders: No Disorders: No HTN: No Hypercholesterolemia: No Liver Disease: No Psychiatric Problems: Yes (depression) Seizures: Yes (LAST ONE 3 YEARS AGO/NO MEDS) Thyroid Disease: Yes - Surgical History Abdominal Surgery: No Appendectomy: Yes (removed when young) Cardiac Surgery: No Cholecystectomy: No Lung Surgery: No Neurologic Surgery: No Orthopedic Surgery: No - Immunization History Td Vaccination: No TDAP Vaccination: Yes Immunization Up to Date: No (no flu vaccine) - Psycho-Social/Smoking History Smoking Status: Yes Smoking History: Current every day smoker Years of Tobacco Use: 0 Have you smoked in the past 12 months: No Number of Cigarettes Smoked Daily: 2 Cigars Per Day: 0 Information on smoking cessation initiated: No 'Breaking Loose' booklet given: 01/23/15 - Substance Abuse Hx (Audit-C & DAST Scrn) How often the patient has a drink containing alcohol: Monthly or less How often the patient has six or more drinks on one occasion: Never Score: In Men: 4 or > Positive; In Women: 3 or > Positive: 1 Screen Result (Pos requires Nsg. Audit-10AR): Negative Review of Systems - Review of Systems Able to Perform ROS?: Yes Constitutional: No: Symptoms Reported HEENTM: No: Symptoms Reported Respiratory: No: Symptoms reported Cardiac (ROS): No: Symptoms Reported ABD/GI: No: Symptoms Reported : No: Symptoms Reported Musculoskeletal: No: Symptoms Reported Integumentary: No: Symptoms Reported Neurological: Yes: Seizure. No: Headache, Numbness, Paresthesia, Weakness Endocrine: No: Symptoms Reported Hematologic/Lymphatic: No: Symptoms Reported All Other Systems: Reviewed and Negative *Physical Exam - Vital Signs Last Vital Signs Temp Pulse Resp BP Pulse Ox 99.9 F H 72 18 112/68 100 05/19/20 09:16 05/19/20 09:16 05/19/20 09:16 05/19/20 09:16 05/19/20 09:16 - Physical Exam General Appearance: Yes: Nourished, Appropriately Dressed, Disheveled, Other (clothes soaked in urine with flies aroud clothing, malodorous, resting in bed in NAD). No: Apparent Distress HEENT: positive: EOMI, AKILAH, Normal Voice, Symmetrical, Pharynx Normal, Hearing Grossly Normal. negative: Scleral Icterus (R), Scleral Icterus (L), Pharyngeal Erythema, Tonsillar Exudate, Tonsillar Erythema Neck: positive: Trachea midline, Normal Thyroid, Supple. negative: Tender, Rigid, Lymphadenopathy (R), Lymphadenopathy (L), Tender lateral, Tender midline Respiratory/Chest: positive: Lungs Clear, Normal Breath Sounds. negative: Chest Tender, Respiratory Distress, Accessory Muscle Use, Crackles, Rales, Rhonchi, Stridor, Wheezing Cardiovascular: positive: Regular Rhythm, Regular Rate. negative: Murmur Gastrointestinal/Abdominal: positive: Normal Bowel Sounds, Flat, Soft. negat mikal: Tender, Organomegaly, Pulsatile Mass, Guarding, Rebound, Tenderness Musculoskeletal: positive: Normal Inspection. negative: CVA Tenderness, Decreased Range of Motion, Vertebral Tenderness Extremity: positive: Normal Capillary Refill, Normal Inspection, Normal Range of Motion, Pelvis Stable. negative: Tender, Pedal Edema, Swelling, Calf Tenderness Integumentary: positive: Normal Color, Dry, Warm Neurologic: positive: automobile brakes bonder II-XII NML intact, Fully Oriented, Alert, Normal Mood/Affect, Normal Response, Motor Strength 5/5 (ROM limited by pain in legs but has 5/5 strength to hips and knees). negative: Sensory Deficit ED Treatment Course - LABORATORY CBC & Chemistry Diagram: 05/19/20 10:15 05/19/20 10:15 Medical Decision Making - Medical Decision Making 05/19/20 10:54 Patient presents with reported seizure, consistent with HPI no medications for a month, urinary incontinence, known epilepsy. No neurological deficits at this time, no JACKSON, A/Ox3, compliant with care. VSS, in NAD. Ordered CBC/CMP/lactic acid for eval true sz and levels for Keppra and phenytoin for further evaluation. Will load on medications as needed once results return. 05/19/20 10:57 Labs notable for: - CBC WNL - CMP WNL - LA WNL 05/19/20 13:21 Confirmed home medications: Keppra 500mg BID, Dilantin 100mg TID, and Trimeq for HAAART. Loading dose of Keppra 1000mg PO and Dilantin 400mg PO > 300mg PO > 300mg PO. Giving Keppra and 1st dose Dilantin now. 05/19/20 14:21 Dr. Erazo consulted regarding loading dose, recommends patient can be discharged home with 300mg PO medications spaced several hours apart. Given 400mg Dilantin and 1000mg Keppra here. No seizures in ED today. Will send Rx and discharge home with [facility] f/u for HIV care. 05/19/20 15:25 Discussed plan with patient who verbalizes understanding. Discharge - Discharge Information Problems reviewed: Yes Clinical Impression/Diagnosis: Seizure Condition: Stable - Additional Discharge Information Prescriptions: Phenytoin Na Extended [Dilantin -] 100 mg PO TID #90 capsule levETIRAcetam [Keppra -] 500 mg PO BID #60 tablet - Follow up/Referral Referrals: Harmeet Erazo MD [Staff Physician] - [facility] [place] [facility] [place] [Provider Group] [facility] Prov[facility] [Provider Group] - Patient Discharge Instructions Patient Printed Discharge Instructions: DI for Seizure Disorder -- Adult, DI for HIV Additional Instructions: Today you were evaluated for a seizure. We checked your blood and there were no problems. We are giving you doses of your Keppra and Dilantin, and will be sending you home with a supply of your seizure medications. To complete your loading dose of Dilantin, you need to take 300mg (3 tablets) of Dilantin in one hour, and another 300mg (3 tablets) later tonight at least 2 hours later. Tomorrow, please take 100mg Dilantin three times a day, and 500mg Keppra twice a day. We have given a supply for 30 days, but you need to follow-up with a regular doctor for further management. A referral to Dr. Erazo, a neurologist, has been given. A referral to the [facility] for HIV treatment, as well as neurology care and a primary care doctor, have been given. Follow-up with your doctors for more treatment. If you experience worsening seizures, pain, fevers, or other new or concerning symptoms, please return to the emergency room. - Post Discharge Activity
[2020-05-19 10:35] LABS: BASO % 0.4 % (0-2.0); EOS % 0.6 % (0-4.5); HEMATOCRIT 43.3 % (35.4-49); HEMOGLOBIN 14.4 GM/dL (11.7-16.9); LYMPH % 20.9 % (8-40); MCH 30.6 pg (25.7-33.7); MCHC 33.2 g/dl (32.0-35.9); MEAN CELL VOLUME 92.1 fl (80-96); MEAN PLT VOLUME 9.6 fl (7.5-11.1); MONO % 8.5 % (3.8-10.2); NEUT % 69.6 % (42.8-82.8); PLATELET COUNT 171 K/MM3 (134-434); RDW 13.2 % (11.9-15.9); WHITE BLOOD COUNT 4.4 K/mm3 (4.0-10.0)
[2020-05-19 10:56] LABS: ALBUMIN 3.9 g/dl (3.4-5.0); BILIRUBIN,TOTAL 0.7 mg/dL (0.2-1); BLOOD UREA NITROGEN 11.6 mg/dL (7-18); CALCIUM 10.6 mg/dL (8.5-10.1); CREATININE 0.9 mg/dL (0.55-1.3); TOT PROT 8.5 g/dl (6.4-8.2)
--- NOTE | 2020-05-19 11:22 | PDOC ---
Documentation entered by Salas Archuleta SCRIBE, acting as scribe for Edgardo Nash MD. Edgardo Nash MD: This documentation has been prepared by the sybilibe, Salas Archuleta SCRIBE, under my direction and personally reviewed by me in its entirety. I confirm that the documentation accurately reflects all work, treatment, procedures, and medical decision making performed by me. Attending Attestation - Resident Resident Name: TamieCharles - ED Attending Attestation I have performed the following: I have examined & evaluated the patient, The case was reviewed & discussed with the resident, I agree w/resident's findings & plan, Exceptions are as noted - HPI HPI: 05/19/20 09:56 The patient is a 34 year old male with a significant past medical history of HIV, asthma, epilepsy (on Keppra and Dilantin), cellulitis of the legs, and depression who presents to the emergency department for evaluation of a seizure this morning. The patient reports and presents with urinary and fecal incontinence after a syncopal episode this morning wtihou tongue biting. The patient notes going to [facility] this morning for leg pain, and then was discharged, felt a seizure aura. after he left, he recalls falling and then waking up a few minutes later after soiled himself. He reports calling EMS to bring him to the ED for evaluation. He reports not taking his medications for seizures or HIV for one month since he ran out of his meds (states he has not seen his doctors at [facility] due to prior not being able to get into the [place]). The patient denies chest/abdominal/back pain, cough, and shortness of breath. Denies fever, chills, nausea, or vomiting. Denies any other symptoms. Allergies: Iodine, shellfish, latex, Benadryl, ativan, penicillin, haldol Past surgical history: None reported Social history: He denies tobacco, alcohol and drug use PCP Dr. Butch Sorto - Physicial Exam PE: 05/19/20 09:41 GENERAL: The patient is awake, alert, and fully oriented, Nontoxic - in no acute distress, dischevelled apppearing, unkempt HEAD: Normocephalic, atraumatic. EYES: extraocular movements intact, sclera anicteric, conjunctiva clear. ENT: Normal voice, Moist mucous membranes. NECK: Normal range of motion, supple without lymphadenopathy, JVD, or masses. N ofocal midline tenderness LUNGS: Breath sounds equal, clear to auscultation bilaterally. No wheezes, no crackles, no rales. HEART: Regular rate and rhythm, normal S1 and S2 without murmur, rub or gallop. ABDOMEN: Soft, nontender, normoactive bowel sounds. No guarding, no rebound. No masses. EXTREMITIES: Normal range of motion, NEUROLOGICAL: No facial asymmetry, Normal speech, moving all 4 ext spontaneously and symmetrically . PSYCH: Normal mood, normal affect. SKIN: Warm, Dry, normal turgor, no rashes or lesions noted. - Medical Decision Making 05/19/20 11:20 hx of HIV, seizures presenting with unwintnesse dseizure associated with urinary and bowel incontinence in setting of not taking his meds over the past month neuro intact will obtain labs, keppra/dilantin level if low will load th epatient if labs unremarkable wihll have pt fu with his neurologist/hiv doctors 05/19/20 13:50 labs reviewed will load the pt with PD seizure meds will give him an RX for his meds and have close fu with his doctors Discharge - Discharge Information Problems reviewed: Yes Clinical Impression/Diagnosis: Seizure Condition: Stable Disposition: HOME - Additional Discharge Information Prescriptions: Phenytoin Na Extended [Dilantin -] 100 mg PO TID #90 capsule levETIRAcetam [Keppra -] 500 mg PO BID #60 tablet - Follow up/Referral Referrals: [facility] [Provider Group] [facility] [place] [Provider Group] Harmeet Erazo MD [Staff Physician] - - Patient Discharge Instructions Patient Printed Discharge Instructions: DI for Seizure Disorder -- Adult, DI for HIV Additional Instructions: Today you were evaluated for a seizure. We checked your blood and there were no problems. We are giving you doses of your Keppra and Dilantin, and will be sending you home with a supply of your seizure medications. To complete your loading dose of Dilantin, you need to take 300mg (3 tablets) of Dilantin in one hour, and another 300mg (3 tablets) later tonight at least 2 hours later. Tomorrow, please take 100mg Dilantin three times a day, and 500mg Keppra twice a day. We have given a supply for 30 days, but you need to follow-up with a regular doctor for further management. A referral to Dr. Erazo, a neurologist, has been given. A referral to the [facility] for HIV treatment, as well as neurology care and a primary care doctor, have been given. Follow-up with your doctors for more treatment. If you experience worsening seizures, pain, fevers, or other new or concerning symptoms, please return to the emergency room. - Post Discharge Activity
[2020-05-19] MEDS ORDERED: levETIRAcetam 500 MG TABLET (FP) PO ONE ×2 (13:21→13:26)
[2020-05-19] MEDS ORDERED: PHENYTOIN NA EXTENDED 100 MG CAPSULE (FP) PO ONE (13:21)
[2020-05-19] MEDS ORDERED: PHENYTOIN NA EXTENDED 100 MG CAPSULE (FP) ONE (13:26)
[2020-05-19 14:05] VITALS: BP 109/63; PULSE 69
== END 2020-05-19 15:30 | disposition home or self-care (01) ==
LOC: JER 08:59
DX: G40.89 Other seizures (principal)
CPT/HCPCS: 36415; 80053; 80177; 80185; 83605; 85025; 99283-25

== ENCOUNTER 2022-04-01 18:54 | Inpatient (IN) | payer OTHER ==
[2022-04-01] MEDS ORDERED: SODIUM CHLORIDE 0.9% 500 ML INFUS.BAG IV ONE (20:02)
[2022-04-01 22:00] LABS: VENOUS BASE EXCESS 1.9 mmol/L (-2-2); VENOUS O2 SATURATION 25.5 % (70-80); VENOUS PCO2 54.7 mmHg (38-52); VENOUS PH 7.341 (7.310-7.410)
[2022-04-01 22:04] LABS: BASO % 0.4 % (0-2.0); EOS % 2.5 % (0-4.5); HEMATOCRIT 35.6 % (35.4-49); HEMOGLOBIN 12.2 GM/dL (11.7-16.9); LYMPH % 7.9 % (8-40); MCH 30.8 pg (25.7-33.7); MCHC 34.4 g/dl (32.0-35.9); MEAN CELL VOLUME 89.5 fl (80-96); MEAN PLT VOLUME 10.2 fl (7.5-11.1); MONO % 9.3 % (3.8-10.2); NEUT % 79.9 % (42.8-82.8); PLATELET COUNT 141 10^3/uL (134-434); RBC 3.97 M/mm3 (4.00-5.60); WHITE BLOOD COUNT 4.1 K/mm3 (4.0-10.0)
[2022-04-01 22:15] LABS: INR 1.1 (0.83-1.09); PROTHROMBIN TIME (PATIENT) 12.7 SEC (9.7-13.0)
[2022-04-01 22:18] LABS: ACTIVATED PTT 28.1 SECONDS (25.2-36.5)
[2022-04-01 22:25] LABS: CALCIUM 10.4 mg/dL (8.5-10.1)
[2022-04-01 22:26] LABS: ALBUMIN 3.7 g/dl (3.4-5.0); BLOOD UREA NITROGEN 12.7 mg/dL (7-18)
[2022-04-01 22:29] LABS: CREATININE 0.8 mg/dL (0.55-1.3)
[2022-04-01 22:31] LABS: BILIRUBIN,TOTAL 0.6 mg/dL (0.2-1); TOT PROT 7.9 g/dl (6.4-8.2)
[2022-04-01] MEDS ORDERED: valACYclovir HCL 1000 MG TABLET PO ONE (22:48)
[2022-04-01] MEDS ORDERED: valACYclovir HCL 500 MG TABLET (FP) ONE (22:56)
[2022-04-01 23:26] LABS: EPI CELLS 18 /uL (0-25.1); HYALINE CASTS 3 /uL (0-3.1); URINE APPEARANCE CLEAR; URINE BACTERIA 20 /uL (0-1359); URINE BILIRUBIN NEGATIVE (NEGATIVE); URINE COLOR YELLOW; URINE GLUCOSE (UA) NEGATIVE (NEGATIVE); URINE KETONE NEGATIVE (NEGATIVE); URINE LEUK ESTERASE 1+ (NEGATIVE); URINE NITRITE NEGATIVE (NEGATIVE); URINE PROTEIN TRACE (NEGATIVE); URINE RBC 2 /uL (0-23.9); URINE WBC 72 /uL (0-25.8)
[2022-04-02] MEDS ORDERED: LACTATED RINGERS SOLUTION 1,000 ML/1,000 ML INFUS.BAG IV SCH ×2 (01:00→16:08)
[2022-04-02] MEDS: HEPARIN NA (PORCINE) 5,000 UNITS/ML 1ML VIAL SQ SCH ×3 (07:00→21:22)
[2022-04-02] MEDS ORDERED: levETIRAcetam 500 MG TABLET (FP) PO ONE (09:00)
[2022-04-02] MEDS ORDERED: D5-1/2NS+20 MEQ KCL - 20 MEQ/1,000 ML INFUS.BAG IV SCH ×2 (09:00→16:08)
[2022-04-02] MEDS ORDERED: NICOTINE 21 MG/24 HOURS TOPICAL PATCH ONE (09:41)
[2022-04-02] MEDS ORDERED: levETIRAcetam 500 MG TABLET (FP) PO SCH (10:00)
[2022-04-02] MEDS ORDERED: NICOTINE 21 MG/24 HOURS TOPICAL PATCH TD SCH (10:00)
[2022-04-02] MEDS ORDERED: ABACAVIR/DOLUTEGRAVIR/LAMIVUDI (TRIUMEQ) TABLET -NF PO SCH (10:00)
[2022-04-02 11:05] LABS: CALCIUM 9.9 mg/dL (8.5-10.1)
[2022-04-02 11:06] LABS: ALBUMIN 3.5 g/dl (3.4-5.0); BLOOD UREA NITROGEN 9.7 mg/dL (7-18)
[2022-04-02 11:09] LABS: CREATININE 0.8 mg/dL (0.55-1.3); PHOSPHOROUS 3.1 mg/dL (2.5-4.9)
[2022-04-02 11:10] LABS: BILIRUBIN,TOTAL 0.9 mg/dL (0.2-1); TOT PROT 7.8 g/dl (6.4-8.2)
[2022-04-02 11:31] LABS: MAGNESIUM 2.4 mg/dL (1.8-2.4)
[2022-04-02] MEDS: BICTEGRAV/EMTRICIT/TENOFOV (BIKTARVY) 50-200-25 MG TABLET PO SCH (14:04)
[2022-04-02] MEDS ORDERED: PHENYTOIN NA EXTENDED 100 MG CAPSULE (FP) ONE (14:50)
[2022-04-02] MEDS: PHENYTOIN NA EXTENDED 100 MG CAPSULE (FP) PO SCH ×2 (14:53→21:21)
[2022-04-02 16:48] VITALS: BMI 24.3
[2022-04-02] MEDS ORDERED: chlorproMAZINE HCL 25 MG TABLET PO PRN (17:44)
[2022-04-02 18:20] VITALS: RESP 18
[2022-04-02] MEDS ORDERED: QUEtiapine FUMARATE 25 MG TABLET ONE (21:19)
[2022-04-02] MEDS: levETIRAcetam 250 MG TABLET PO SCH (21:22)
[2022-04-02] MEDS: QUEtiapine FUMARATE 50 MG TABLET PO SCH (21:22)
[2022-04-02] MEDS: ASPIRIN 81 MG CHEWABLE TABLETS PO SCH (21:23)
[2022-04-02] MEDS: levETIRAcetam 500 MG TABLET (FP) PO SCH (21:23)
[2022-04-02] MEDS ORDERED: traZODone HCL 50 MG TABLET (FP) PO SCH (22:00)
[2022-04-03] MEDS: HEPARIN NA (PORCINE) 5,000 UNITS/ML 1ML VIAL SQ SCH ×2 (06:26→13:33)
[2022-04-03] MEDS: PHENYTOIN NA EXTENDED 100 MG CAPSULE (FP) PO SCH ×2 (07:02→13:33)
[2022-04-03] MEDS ORDERED: SULFAMETHOXAZOLE/TRIMETHOPRIM 800MG/160MG D.S. TABLET PO SCH (10:00)
[2022-04-03] MEDS ORDERED: NICOTINE 21 MG/24 HOURS TOPICAL PATCH TD SCH (10:00)
[2022-04-03] MEDS ORDERED: QUEtiapine FUMARATE 25 MG TABLET ONE (11:11)
[2022-04-03] MEDS: levETIRAcetam 500 MG TABLET (FP) PO SCH (11:19)
[2022-04-03] MEDS: levETIRAcetam 250 MG TABLET PO SCH (11:19)
[2022-04-03] MEDS: ASPIRIN 81 MG CHEWABLE TABLETS PO SCH (11:19)
[2022-04-03] MEDS: BICTEGRAV/EMTRICIT/TENOFOV (BIKTARVY) 50-200-25 MG TABLET PO SCH (11:20)
[2022-04-03] MEDS: QUEtiapine FUMARATE 50 MG TABLET PO SCH (11:21)
[2022-04-03] MEDS ORDERED: valACYclovir HCL 500 MG TABLET (FP) PO SCH (12:49)
[2022-04-03] MEDS ORDERED: valACYclovir HCL 500 MG TABLET (FP) PO ONE (13:36)
[2022-04-03 18:34] VITALS: BP 113/67; PULSE 90; TEMP 98
== END 2022-04-03 19:12 | disposition home or self-care (01) | DRG 892 ==
LOC: JER 18:54 → JERBED 04-02 00:53 → OBSVTOIN 04-02 00:53 → J5S 04-02 15:42
PROVIDERS: ADMIT Internal Medicine; ATTEND Internal Medicine
DX: A60.01 Herpesviral infection of penis (principal); B20 Human immunodeficiency virus [HIV] disease; G40.909 Epilepsy, unspecified, not intractable, without status epilepticus; I25.2 Old myocardial infarction; G43.909 Migraine, unspecified, not intractable, without status migrainosus; F32.A Depression, unspecified; E21.3 Hyperparathyroidism, unspecified; F20.89 Other schizophrenia; R59.0 Localized enlarged lymph nodes; F29 Unspecified psychosis not due to a substance or known physiological condition; L98.8 Other specified disorders of the skin and subcutaneous tissue; R45.851 Suicidal ideations; R00.2 Palpitations; W18.30XA Fall on same level, unspecified, initial encounter; Y92.89 Other specified places as the place of occurrence of the external cause; Y99.8 Other external cause status; Z91.14 Patient's other noncompliance with medication regimen; Z59.00 Homelessness unspecified
CPT/HCPCS: 36415; 70450-TC; 71045-TC-FY; 72125-TC; 80053; 80177; 81003; 82803; 83605; 83735; 84100; 84484; 85025; 85610; 85730; 86850; 86900; 86901; 87040; 87086; 87186; 93005; 93010; 99285-25; C9803-CS; J1644; U0003; U0005